=== PATIENT | male | born 1975 | race African-American/Black ===

== ENCOUNTER 2024-07-11 09:58 | Emergency (ER) | payer OTHER, SELFPAY ==
[2024-07-11 10:06] VITALS: BP 144/90; PULSE 92; TEMP 37.1; O2SAT 98; BMI 33.0
[2024-07-11] MEDS: LIDOCAINE HCL 1% 100 MG/10 ML MDV INJ (10:16)
--- NOTE | 2024-07-11 10:32 | ED.GENADUL1 ---
HPI HPI - General Adult General Chief complaint: Wound/Laceration Stated complaint: SKIN, LOWER EXTREMITY Time Seen by Provider: 07/11/24 10:05 Source: patient Mode of arrival: walk-in Limitations: no limitations History of Present Illness HPI narrative: 49-year-old male presents for painful raised lump in his left groin. He has had it for 3 days. No drainage or trauma. He sweats a great deal at work. He has not had a fever or vomiting. Related Data Previous Rx's ?Medication ?Instructions ?Recorded acetaminophen 300 mg-codeine 30 mg 1 tab PO Q6H PRN pain 5 days #20 07/11/24 tablet tabs cephalexin 500 mg capsule 500 mg PO QID 10 days #40 caps 07/11/24 sulfamethoxazole 800 1 tab PO BID 10 days #20 tabs 07/11/24 mg-trimethoprim 160 mg tablet (Bactrim DS) Allergies Allergy/AdvReac Type Severity Reaction Status Date / Time No Known Drug Allergies Allergy Verified 07/11/24 10:05 Opioid HPI Opioid Management Most Recent Opioid Data: No Data to Display Review of Systems ROS Narrative A ten point review of systems is negative except as noted above. Exam Narrative Exam Narrative: Nurses note and vital signs reviewed and patient is not hypoxic. General: The patient appears well and in no apparent distress. Patient is resting comfortably on cart. Skin: Warm, dry, no pallor noted. There is no rash noted. In the left inguinal area there is a raised area approximately 1 inch in diameter. It is fluctuant. No open area or drainage. Head: Normocephalic, atraumatic Eye: Normal conjunctiva, no drainage Ears, Nose, Mouth, and Throat: oral mucosa is moist. Nares patent. Cardiovascular: Regular Rate and Rhythm Respiratory: Patient is in no distress, no accessory muscle use, lungs are clear to auscultation, no wheezing, rales or rhonchi Back: non-tender, no CVA tenderness bilaterally to percussion. GI: Soft and nontender Musculoskeletal: The patient has no evidence of calf tenderness, no pitting edema, symmetrical pulses noted bilaterally Neurological: A&O, normal speech Psychiatric: Cooperative Constitutional Vital Signs, click to edit/add: Last Vital Signs Temp 98.8 F 07/11/24 10:06 Pulse 92 H 07/11/24 10:06 Resp 18 07/11/24 10:06 BP 144/90 H 07/11/24 10:06 Pulse Ox 98 07/11/24 10:06 Course Vital Signs Vital signs: Vital Signs Temperature 98.8 F 07/11/24 10:06 Pulse Rate 92 H 07/11/24 10:06 Respiratory Rate 18 07/11/24 10:06 Blood Pressure 144/90 H 07/11/24 10:06 Pulse Oximetry 98 07/11/24 10:06 Temperature 98.8 F 07/11/24 10:06 Pulse Rate 92 H 07/11/24 10:06 Respiratory Rate 18 07/11/24 10:06 Blood Pressure 144/90 H 07/11/24 10:06 Pulse Oximetry 98 07/11/24 10:06 Medical Decision Making MDM Narrative Medical decision making narrative: He was prescribed Bactrim and Keflex. Treatment diagnosis and follow-up were discussed with the patient. He was recommended to be off work tomorrow. Differential Diagnosis Differential Diagnosis: Abscess, cellulitis Discharge Plan Discharge Stand Alone Forms: Portal Instructions Chief Complaint: Wound/Laceration Clinical Impression: Abscess Patient Disposition: Home, Self-Care Time of Disposition Decision: 10:28 Condition: Good Mode of Transportation: Private Vehicle Prescriptions / Home Meds: New sulfamethoxazole-trimethoprim [Bactrim DS] 800-160 mg tablet 1 tab PO BID 10 Days Qty: 20 0RF acetaminophen-codeine 300-30 mg tablet 1 tab PO Q6H PRN (Reason: pain) 5 Days Qty: 20 0RF cephalexin 500 mg capsule 500 mg PO QID 10 Days Qty: 40 0RF Print Language: [place] Instructions: Abscess (ED) Referrals: Physician,Non-Staff, MD [Primary Care Provider] - 1 week Procedures ED Procedure Instructions Procedures Procedures: The following procedure was performed by me. Local infiltration was carried out with 1% lidocaine without epinephrine resulting in complete skin anesthesia. The area was prepped with Betadine x 3 and draped sterilely. Using a #11 blade the abscess was incised and drained of a moderate amount of purulent material. No packing was needed. He tolerated the procedure well.
--- NOTE | 2024-07-11 10:37 | ED.GENADUL1 ---
HPI HPI - General Adult General Chief complaint: Wound/Laceration Stated complaint: SKIN, LOWER EXTREMITY Time Seen by Provider: 07/11/24 10:05 Source: patient Mode of arrival: walk-in Limitations: no limitations Related Data Previous Rx's ?Medication ?Instructions ?Recorded acetaminophen 300 mg-codeine 30 mg 1 tab PO Q6H PRN pain 5 days #20 07/11/24 tablet tabs cephalexin 500 mg capsule 500 mg PO QID 10 days #40 caps 07/11/24 sulfamethoxazole 800 1 tab PO BID 10 days #20 tabs 07/11/24 mg-trimethoprim 160 mg tablet (Bactrim DS) Allergies Allergy/AdvReac Type Severity Reaction Status Date / Time No Known Drug Allergies Allergy Verified 07/11/24 10:05 Opioid HPI Opioid Management Most Recent Opioid Data: No Data to Display Exam Constitutional Vital Signs, click to edit/add: Last Vital Signs Temp 98.8 F 07/11/24 10:06 Pulse 92 H 07/11/24 10:06 Resp 18 07/11/24 10:06 BP 144/90 H 07/11/24 10:06 Pulse Ox 98 07/11/24 10:06 Course Vital Signs Vital signs: Vital Signs Temperature 98.8 F 07/11/24 10:06 Pulse Rate 92 H 07/11/24 10:06 Respiratory Rate 18 07/11/24 10:06 Blood Pressure 144/90 H 07/11/24 10:06 Pulse Oximetry 98 07/11/24 10:06 Temperature 98.8 F 07/11/24 10:06 Pulse Rate 92 H 07/11/24 10:06 Respiratory Rate 18 07/11/24 10:06 Blood Pressure 144/90 H 07/11/24 10:06 Pulse Oximetry 98 07/11/24 10:06 Discharge Plan Discharge Stand Alone Forms: Portal Instructions Chief Complaint: Wound/Laceration Clinical Impression: Abscess Patient Disposition: Home, Self-Care Time of Disposition Decision: 10:28 Condition: Good Mode of Transportation: Private Vehicle Prescriptions / Home Meds: New sulfamethoxazole-trimethoprim [Bactrim DS] 800-160 mg tablet 1 tab PO BID 10 Days Qty: 20 0RF acetaminophen-codeine 300-30 mg tablet 1 tab PO Q6H PRN (Reason: pain) 5 Days Qty: 20 0RF cephalexin 500 mg capsule 500 mg PO QID 10 Days Qty: 40 0RF Print Language: Portuguese Instructions: Abscess (ED) Referrals: Physician,Non-Staff, MD [Primary Care Provider] - 1 week
== END 2024-07-11 10:57 | disposition home or self-care (01) ==
PROVIDERS: Emergency Provider Emergency Medicine
DX: L02.214 Cutaneous abscess of groin (principal)
CPT/HCPCS: 10060; 80048; 84484; 99283